=== PATIENT | female | born 1960 | race African-American/Black ===

== ENCOUNTER → 2024-10-03 | Day surgery (SDC) | payer MEDICARE, OTHER ==
[~2024-10-03] VITALS: Ht 162.6 cm; Wt 49.4 kg
[~2024-10-03] MED LIST: ACETYLCHOLINE CHLORIDE INTRAOCULAR SOLUTION 1:100 ELECTROLYTE DILUENT IO ONE; AMLO5TAB88 PO; BALANCED SALT IRRIG SOLN COMB1 500ML OP NR; CEL200 PO; CYCLOPENTOLATE HCL 1% OPHTH DROPS 2ML LEFTEYE ONE; FENTANYL CITRATE/PF 50MCG/ML 2ML VIAL ONE; HYALURONATE SODIUM 10MG/ML 0.55ML SYRINGE IO ONE; HYDR-4001 PO; LABETALOL 5MG/ML 4ML INJ IV PRN; LACTATED RINGERS 1,000 ML IV SCH; LIDOCAINE HCL 1% 20ML VIAL ONE; MELO-105 PO; MEPERIDINE HCL/PF 25MG/ML CPJ IV PRN; MIDAZOLAM HCL 2 MG/2 ML VIAL ONE; ONDANSETRON HCL 4MG/2ML INJ IV PRN; PHENYLEPHRINE HCL 10% OPHTH DROPS 5ML LEFTEYE ONE; PROPOFOL 200MG/20ML VIAL IV ONE; TRIAMCINOLONE ACETONIDE 40MG/ML 1ML VIAL ONE; TROPICAMIDE 1% OPHTH DROPS 15ML LEFTEYE ONE; TRYPAN BLUE 0.5 ML DISP.SYRIN IO ONE
[2024-10-03 12:37] VITALS: BP 133/73; PULSE 94; RESP 15
[2024-10-03] MEDS: HYDROMORPHONE HCL/PF 1MG/ML INJ IV PRN (12:37)
== END | disposition home or self-care (01) ==
LOC: OR 10:16
PROVIDERS: ATTEND Ophthalmology
DX: H40.89 Other specified glaucoma (principal); I10 Essential (primary) hypertension; J45.909 Unspecified asthma, uncomplicated; Z79.899 Other long term (current) drug therapy; Z98.890 Other specified postprocedural states; Z88.0 Allergy status to penicillin; Z88.8 Allergy status to other drugs, medicaments and biological substances
CPT/HCPCS: 66170; J3010; J3490 ×4; J2003; J2250; J2704; J3301; J1171; Q9957